=== PATIENT | female | born 1975 | race Caucasian/White ===

== ENCOUNTER 2018-08-30 22:42 | Emergency (ER) | payer SELFPAY ==
[~2018-08-30] VITALS: Ht 149.9 cm; Wt 79.2 kg
[2018-08-30 22:55] VITALS: Ht 149.9 cm; Wt 79.2 kg
[2018-08-31 00:56] LABS: BASOPHIL % 0.6 % (0-2); PLATELET COUNT 321 x10^3mcL (130-400); RED CELL DISTRIBUTION WIDTH 13.2 % (11.5-14.5)
[2018-08-31 01:35] LABS: ALBUMIN 3.8 g/dL (3.4-5.0); ALKALINE PHOSPHATASE 91 U/L (46-116); ALT/SGPT 55 U/L (14-59); AST/SGOT 22 U/L (15-37); BILIRUBIN TOTAL 0.3 mg/dL (0.20-1.00); CARBON DIOXIDE 24.1 mmol/L (21-32); CHLORIDE SERUM 102 mmol/L (98-107); CREATININE SERUM 0.7 mg/dL (0.6-1.0); GFR1 > 60 mL/min; GLUCOSE SERUM 109 mg/dL (74-106); LIPASE 101 IU/L (73-393); POTASSIUM SERUM 3.6 mmol/L (3.5-5.1); SODIUM SERUM 135 mmol/L (136-145)
[2018-08-31 01:38] LABS: TOTAL PROTEIN, SERUM 8.3 g/dL (6.4-8.2)
[2018-08-31 01:41] LABS: CALCIUM 8.7 mg/dL (8.5-10.1)
[2018-08-31 02:11] VITALS: BP 124/31
== END 2018-08-31 02:11 | disposition home or self-care (01) ==
LOC: ED 22:42
PROVIDERS: Emergency Medicine
DX: K29.00 Acute gastritis without bleeding (principal); K21.9 Gastro-esophageal reflux disease without esophagitis
CPT/HCPCS: J2270; J2405; Q0092